=== PATIENT | male | born 1985 | race African-American/Black ===

== ENCOUNTER 2018-12-01 12:57 | Emergency (ER) | payer OTHER ==
--- NOTE | 2018-12-01 13:47 | PHYS DOC ---
Past History Past Medical History: No Pertinent History Past Surgical History: Other Alcohol Use: Occasionally Drug Use: None Adult General Chief Complaint Chief Complaint: LOWER EXTREMITY SWELLING HPI HPI 33-year-old male presents with generalized edema. 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 Before he came back, he states that he had very high sodium meal. Since getting back, he has had generalized swelling and edema in his lower extremities and bilateral hands. He admits that it is better today than yesterday. He just wanted it checked out to make sure it was not a sign of a more serious issue. Patient denies fever or chills. He has had no cardiac problems. He has no significant medical history. He is not taking any medications. Review of Systems Review of Systems Constitutional: Denies fever or chills [] Eyes: Denies change in visual acuity, redness, or eye pain [] HENT: Denies nasal congestion or sore throat [] Respiratory: Denies cough or shortness of breath [] Cardiovascular: No additional information not addressed in HPI [] GI: Denies abdominal pain, nausea, vomiting, bloody stools or diarrhea [] : Denies dysuria or hematuria [] Musculoskeletal: General discomfort of the knees and hands[] Integument: Denies rash or skin lesions [] Neurologic: Denies headache, focal weakness or sensory changes [] Endocrine: Denies polyuria or polydipsia [] All other systems were reviewed and found to be within normal limits, except as documented in this note. Allergies Allergies Allergies Coded Allergies Type Severity Reaction Last Updated Verified No Known Drug Allergies 12/01/18 No Physical Exam Physical Exam Constitutional: Well developed, well nourished, no acute distress, non-toxic appearance. [] HENT: Normocephalic, atraumatic, bilateral external ears normal, oropharynx moist, no oral exudates, nose normal. [] Eyes: PERRLA, EOMI, conjunctiva normal, no discharge. [] Neck: Normal range of motion, no tenderness, supple, no stridor. [] Cardiovascular:Heart rate regular rhythm, no murmur [] Lungs & Thorax: Bilateral breath sounds clear to auscultation [] Abdomen: Bowel sounds normal, soft, no tenderness, no masses, no pulsatile masses. [] Skin: Warm, dry, no erythema, no rash. Mild edema of the bilateral lower extremities up to knees and hands. Nonpitting. [] Back: No tenderness, no CVA tenderness. [] Extremities: No tenderness, no cyanosis, no clubbing, ROM intact. [] Neurologic: Alert and oriented X 3, normal motor function, normal sensory function, no focal deficits noted. [] Psychologic: Affect normal, judgement normal, mood normal. [] Current Patient Data Vital Signs Vital Signs Date Time Temp Pulse Resp B/P (MAP) Pulse Ox O2 Delivery O2 Flow Rate FiO2 12/01/18 13:14 98.1 60 18 100 Room Air EKG EKG [] Radiology/Procedures Radiology/Procedures [] Course & Med Decision Making Course & Med Decision Making Pertinent Labs and Imaging studies reviewed. (See chart for details) Based on my exam, I believe the patient just has some mild increased edema from the manual labor as well as the sodium load. It seems to already be getting better. It is not significant. He has no risk factors to cause concern for CHF. I believe this will resolve on its own in the next couple of days. I have advised that he of a low sodium diet for the next several days at least. He will also stable hydrated with water. He is stable for discharge at this time. [] Dragon Disclaimer Dragon Disclaimer This electronic medical record was generated, in whole or in part, using a voice recognition dictation system. Departure Departure: Impression: Primary Impression: Fluid retention in tissues Disposition: HOME, SELF-CARE Condition: STABLE Referrals: PCP,NO (PCP) Additional Instructions: Minimize your sodium intake for the next 2-3 days. The fluid should gradually reabsorb and your swelling will decrease. Problem Qualifiers Primary Impression: Fluid retention in tissues Edema type: unspecified Qualified Codes: R60.9 - Edema, unspecified MARCELLO MOISE DO Dec 01, 2018 13:47
[2018-12-01 13:58] VITALS: BP 116/74
== END 2018-12-01 13:59 | disposition home or self-care (01) ==
LOC: ER 12:57
DX: R60.1 Generalized edema (principal)
CPT/HCPCS: 99281